=== PATIENT | female | born 1960 | race Caucasian/White ===

== ENCOUNTER 2019-03-31 01:56 | Emergency (ER) | payer BC, OTHER ==
--- NOTE | 2019-03-31 02:41 | EDM.PDOC ---
ED HPI GENERAL MEDICAL PROBLEM - General Chief Complaint: ENT Problem Stated Complaint: NOSE BLEED Time Seen by Provider: 03/31/19 02:23 Source of Information: Reports: Patient, Other (Friend) History Limitations: Reports: No Limitations - History of Present Illness INITIAL COMMENTS - FREE TEXT/NARRATIVE: Ms. 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 No trauma to the nose. She is not on an anticoagulant. She does not get epistaxes frequently. Her nose stopped bleeding spontaneously around 02:00, and has not restarted. The patient's PCP is CRISTA Chang. She also sees Chely Burden NP. - Related Data Allergies Allergy/AdvReac Type Severity Reaction Status Date / Time No Known Allergies Allergy Verified 03/31/19 02:01 Home Meds: Home Meds Levothyroxine 1 tab PO DAILY 03/31/19 [History] Past Medical History HEENT History: Reports: Impaired Vision Other HEENT History: wears readng glasses Endocrine/Metabolic History: Reports: Hypothyroidism Oncologic (Cancer) History: Reports: Squamous Cell Carcinoma - Past Surgical History HEENT Surgical History: Reports: Oral Surgery (wisdom teeth extraction) GI Surgical History: Reports: Colonoscopy Female Surgical History: Reports: Tubal Ligation Oncologic Surgical History: Reports: Other (See Below) (SCC excised) Social & Family History - Tobacco Use Smoking Status *Q: Current Every Day Smoker Years of Tobacco use: 40 Packs/Tins Daily: 0.2 Packs/Tins Daily Comment: Down from 0.3 ppd - Alcohol Use Alcohol Use History: Yes Alcohol Use Frequency: Socially - Recreational Drug Use Recreational Drug Use: No - Living Situation & Occupation Living situation: Reports: , with Family (Son) Occupation: Employed (HULL SORTER at [employer]) ED ROS ENT - Review of Systems Review Of Systems: Comprehensive ROS is negative, except as noted in HPI. ED EXAM, ENT - Physical Exam Exam: See Below Exam Limited By: No Limitations General Appearance: Alert, WD/WN, No Apparent Distress Eye Exam: Bilateral Eye: EOMI, Normal Inspection Ears: Normal External Exam, Normal Canal, Hearing Grossly Normal, Normal TMs Nose: Normal Inspection, Normal Mucousa, Dried Blood (RIGHT nostril only. Left nostril normal in appearance, with no visible vessel.) Mouth/Throat: Normal Inspection, Normal Gums, Normal Lips, Normal Oropharynx ( no blood), Normal Teeth Head: Atraumatic, Normocephalic Course - Vital Signs Last Recorded V/S: Last Vital Signs Temp 36.7 C 03/31/19 02:02 Pulse 104 H 03/31/19 02:02 Resp 16 03/31/19 02:02 BP 180/114 H 03/31/19 02:02 Pulse Ox 97 03/31/19 02:02 - Re-Assessments/Exams Free Text/Narrative Re-Assessment/Exam: 03/31/19 02:36 At this time, the patient's nose has stopped bleeding, and on inspection, I do not see a suspect vessel that I can cauterize. I recommended to the patient that she install a humidifier in her home and apply a thin smear of Vaseline to either side of her nasal septum once or twice a day during the winter months, to help keep the membranes moist. I advised her on how to treat a nosebleed, should it occur again. Departure - Departure Time of Disposition: 02:36 Disposition: Home, Self-Care 01 Condition: Good Clinical Impression: Left-sided epistaxis - Discharge Information *PRESCRIPTION DRUG MONITORING PROGRAM REVIEWED*: Not Applicable *COPY OF PRESCRIPTION DRUG MONITORING REPORT IN PATIENT ELGIN: Not Applicable Instructions: Nosebleed, [id number] Referrals: Chela Kerns PA-C [Primary Care Provider] - Chely Burden NP [Nurse Practitioner] - Forms: ED Department Discharge Additional Instructions: You were seen in the emergency room after developing a left-sided nosebleed at work. Your nose had stopped bleeding shortly after arriving to the ER. On examination, a suspect bleeding vessel was not seen, therefore no cautery was performed. Going forward, we recommend that you can stall a humidifier for your home, to keep the humidity up during the winter. We recommend that you apply a thin smear of Vaseline petroleum jelly to either side of your nasal septum, once or twice a day, to keep the membranes moist. If your nose bleeds again, we recommend that you sit upright, tilt your head slightly forward, and squeeze your nostrils tightly for 10-15 minutes. This will stop almost all nosebleeds. If it does not, please return to the ER for further evaluation and treatment. Sepsis Event Note - Evaluation Sepsis Screening Result: No Definite Risk - Focused Exam Date Exam was Performed: 04/01/19 Time Exam was Performed: 06:28
== END 2019-03-31 02:50 | disposition home or self-care (01) ==
LOC: JD.ED 01:56
DX: R04.0 Epistaxis (principal); E03.9 Hypothyroidism, unspecified; F17.210 Nicotine dependence, cigarettes, uncomplicated; Z79.890 Hormone replacement therapy
CPT/HCPCS: 99281; 99283

== ENCOUNTER 2019-06-30 15:57 | Emergency (ER) | payer BC ==
[2019-06-30] MEDS ORDERED: Ondansetron 4 MG/2 ML SDV IVPUSH ONE (16:39)
[2019-06-30] MEDS ORDERED: Famotidine 20 MG/2 ML SDV IVPUSH ONE (16:39)
[2019-06-30] MEDS ORDERED: Sodium Chloride 0.9% 10 ML Syringe FLUSH PRN (16:39)
[2019-06-30] MEDS ORDERED: Sodium Chloride 0.9% 1,000 ML IV SCH (16:45)
--- NOTE | 2019-06-30 17:26 | EDM.PDOC ---
ED HPI GENERAL MEDICAL PROBLEM - General Chief Complaint: Abdominal Pain Stated Complaint: ABDOMINAL PAIN/HEADACHE Time Seen by Provider: 06/30/19 16:16 Source of Information: Reports: Patient, RN Notes Reviewed - History of Present Illness INITIAL COMMENTS - FREE TEXT/NARRATIVE: 59 year old female comes in with abd pain, nausea, vomiting that started yesterday afternoon, continues today. She had been feeling well prior to that. No other family members ill. Pain and cramping is upper mid abd. No cough, fever or chills. Upper Abdomen Pain Score (Numeric/FACES): 7 - Related Data Allergies Allergy/AdvReac Type Severity Reaction Status Date / Time No Known Allergies Allergy Verified 06/30/19 16:19 Home Meds: Home Meds Levothyroxine 25 mcg PO DAILY 06/30/19 [History] Past Medical History - Past Health History Medical/Surgical History: Denies Medical/Surgical History HEENT History: Reports: Impaired Vision Other HEENT History: wears readng glasses Cardiovascular History: Reports: None Respiratory History: Reports: None SEATING CAPTAIN History: Reports: None Musculoskeletal History: Reports: None Neurological History: Reports: None Psychiatric History: Reports: None Endocrine/Metabolic History: Reports: Hypothyroidism, Obesity/BMI 30+ Hematologic History: Reports: None Immunologic History: Reports: None Oncologic (Cancer) History: Reports: Squamous Cell Carcinoma Other Oncologic History: Skin Dermatologic History: Reports: Melanoma - Infectious Disease History Infectious Disease History: Reports: None - Past Surgical History HEENT Surgical History: Reports: Oral Surgery GI Surgical History: Reports: Colonoscopy, EGD Female Surgical History: Reports: Tubal Ligation Social & Family History - Tobacco Use Smoking Status *Q: Current Every Day Smoker Years of Tobacco use: 41 Packs/Tins Daily: 0.1 - Caffeine Use Caffeine Use: Reports: Coffee - Recreational Drug Use Recreational Drug Use: No - Living Situation & Occupation Living situation: Reports: , with Family (Son) 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 Denies: Diarrhea, Hematochezia, Melena Musculoskeletal: Denies: Shoulder Pain, Arm Pain, Back Pain Skin: Reports: No Symptoms Neurological: Reports: No Symptoms ED EXAM, NEURO - Physical Exam Exam: See Below General Appearance: Alert, No Apparent Distress Eye Exam: Bilateral Eye: PERRL Head Exam: Atraumatic. No: Facial Swelling Neck: Supple Respiratory/Chest: No Respiratory Distress, Lungs Clear, Normal Breath Sounds Cardiovascular: Regular Rate, Rhythm GI/Abdominal: Soft, Tender (mild tenderness upper mid abd). No: Guarding, Rebound Neurological: No Motor/Sensory Deficits Extremities: Normal Inspection, Normal Range of Motion Skin Exam: Warm, Dry, Normal Color Course - Vital Signs Last Recorded V/S: Last Vital Signs Temp 98.1 F 06/30/19 16:14 Pulse 59 L 06/30/19 16:14 Resp 16 06/30/19 16:14 BP 177/116 H 06/30/19 16:14 Pulse Ox 97 06/30/19 16:14 - Orders/Labs/Meds Labs: Laboratory Tests 06/30/19 06/30/19 Range/Units 16:30 16:30 WBC 7.70 (3.98-10.04) K/mm3 RBC 5.24 H (3.98-5.22) M/mm3 Hgb 16.9 H (11.2-15.7) gm/dl Hct 50.5 H (34.1-44.9) % MCV 96.4 H (79.4-94.8) fl MCH 32.3 H (25.6-32.2) pg MCHC 33.5 (32.2-35.5) g/dl RDW Std Deviation 47.4 H (36.4-46.3) fL Plt Count 248 (182-369) K/mm3 MPV 10.8 (9.4-12.3) fl Neut % (Auto) 79.9 H (34.0-71.1) % Lymph % (Auto) 12.3 L (19.3-51.7) % Runnels % (Auto) 7.0 (4.7-12.5) % Eos % (Auto) 0.1 L (0.7-5.8) Baso % (Auto) 0.3 (0.1-1.2) % Neut # (Auto) 6.15 H (1.56-6.13) K/mm3 Lymph # (Auto) 0.95 L (1.18-3.74) K/mm3 Runnels # (Auto) 0.54 H (0.24-0.36) K/mm3 Eos # (Auto) 0.01 L (0.04-0.36) K/mm3 Baso # (Auto) 0.02 (0.01-0.08) K/mm3 Sodium 138 (136-145) mEq/L Potassium 4.2 (3.5-5.1) mEq/L Chloride 104 (98-107) mEq/L Carbon Dioxide 22 (21-32) mEq/L Anion Gap 16.2 H (5-15) BUN 12 (7-18) mg/dL Creatinine 1.0 (0.55-1.02) mg/dL Est Cr Clr Drug Dosing 43.51 mL/min Estimated GFR (MDRD) 57 (>60) mL/min BUN/Creatinine Ratio 12.0 L (14-18) Glucose 99 (74-106) mg/dL Calcium 8.4 L (8.5-10.1) mg/dL Total Bilirubin 0.8 (0.2-1.0) mg/dL AST 24 (15-37) U/L ALT 44 (14-59) U/L Alkaline Phosphatase 109 (46-116) U/L Total Protein 6.9 (6.4-8.2) g/dl Albumin 3.2 L (3.4-5.0) g/dl Globulin 3.7 gm/dL Albumin/Globulin Ratio 0.9 L (1-2) Lipase 218 (73-393) U/L Meds: Medications Discontinued Medications Generic Name Dose Route Start Last Admin Trade Name Freq PRN Reason Stop Dose Admin Famotidine 20 mg 06/30/19 16:39 06/30/19 16:55 Pepcid IVPUSH 06/30/19 16:40 20 mg ONETIME ONE Administration Sodium Chloride 1,000 mls @ 999 mls/hr 06/30/19 16:45 06/30/19 16:55 Normal Saline IV 999 mls/hr ONETIME LU Administration Ondansetron HCl 4 mg 06/30/19 16:39 06/30/19 16:55 Zofran IVPUSH 06/30/19 16:40 4 mg ONETIME ONE Administration Sodium Chloride 10 ml 06/30/19 16:39 06/30/19 16:57 Saline Flush FLUSH 10 ml ASDIRECTED PRN Administration Keep Vein Open - Re-Assessments/Exams Free Text/Narrative Re-Assessment/Exam: 06/30/19 17:48 Feeling much better after IV fluid and meds. Labs, flat and upright abd nl. Departure - Departure Time of Disposition: 18:00 Disposition: Home, Self-Care 01 Condition: Fair Clinical Impression: Abdominal pain, Vomiting - Discharge Information Instructions: Abdominal Pain, Adult, [id number] Referrals: Chela Kerns PA-C [Primary Care Provider] - Forms: ED Department Discharge Additional Instructions: Clear liquids until morning, than very careful bland diet as tolerated. Follow up clinic as needed. Return to ED if symptoms worsening in any way Sepsis Event Note - Evaluation Sepsis Screening Result: No Definite Risk - Focused Exam Date Exam was Performed: 07/05/19 Time Exam was Performed: 19:40
--- NOTE | 2019-06-30 17:33 | CR ---
Abdomen: Supine and upright views of the abdomen were obtained. Comparison: No previous abdominal imaging. Bowel gas pattern appears normal. Calcification within the right pelvis compatible with phlebolith is noted. No free air is seen. Bony structures are within normal limits for the patient's age. Impression: 1. Nothing acute is appreciated on 2 view abdominal x-ray. Diagnostic code #1 Study was dictated in MDT
== END 2019-06-30 18:10 | disposition home or self-care (01) ==
LOC: JD.ED 15:57
DX: R10.10 Upper abdominal pain, unspecified (principal); R11.2 Nausea with vomiting, unspecified; E03.9 Hypothyroidism, unspecified; E66.9 Obesity, unspecified; Z68.31 Body mass index [BMI] 31.0-31.9, adult; F17.210 Nicotine dependence, cigarettes, uncomplicated; Z90.49 Acquired absence of other specified parts of digestive tract; Z79.899 Other long term (current) drug therapy
CPT/HCPCS: 36415; 74019; 80053; 83690; 85025; 96361; 96374; 96375; 99284; J2405; J3490; J7030; 99283